=== PATIENT | male | born 1945 | race Caucasian/White ===

== ENCOUNTER → 2020-01-14 | Outpatient (CLI) | payer MEDICARE ==
--- NOTE | 2020-01-14 12:57 | Diagnostic Imaging Report ---
INDICATION: Foot pain. TECHNIQUE: 3 views of the right foot CORRELATION STUDY: None FINDINGS: There is no acute bony abnormality about the right foot. Toes are held in partial flexure limiting their assessment. There are hypertrophic changes of bipartite sesamoid bones of the great toe. Also mild degenerative changes joint space narrowing at the 1st MTP joints. Prominent plantar calcaneal spur is noted. Minimal bony spur like projection off the dorsal aspect of talus. Moderate enthesopathy of insertion of Achilles tendon. Soft tissues appearing unremarkable. IMPRESSION: 1. Negative for acute findings of the foot. Degenerative change present. Dictated by: Dictated on workstation # [id number]
== END ==
LOC: RAD FS 10:00
PROVIDERS: ATTEND Nurse Practitioner
DX: M19.071 Primary osteoarthritis, right ankle and foot (principal)
CPT/HCPCS: 73630

== ENCOUNTER → 2020-08-25 | Outpatient (CLI) | payer MEDICARE ==
--- NOTE | 2020-08-25 10:08 | Diagnostic Imaging Report ---
INDICATION: Right shoulder pain. Ran into door frame a month ago. EXAMINATION: Right shoulder, 3 views. FINDINGS: The glenohumeral joint is in good alignment. The joint space is well-maintained. The articulating surfaces are smooth. The AC joint shows good alignment with mild hypertrophic change along the undersurface. Surgical anchor and humeral tuberosity appear in good position without loosening. No fractures are demonstrated. No soft tissue calcification about the shoulder. 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 No acute abnormality is demonstrated. Dictated by: Dictated on workstation # [id number]
== END ==
LOC: RAD FS 08:27
PROVIDERS: ATTEND Nurse Practitioner
DX: M19.011 Primary osteoarthritis, right shoulder (principal); Z98.890 Other specified postprocedural states
CPT/HCPCS: 73030

== ENCOUNTER 2020-11-23 15:11 | Emergency (ER) | payer MEDICARE ==
[~2020-11-23] VITALS: Ht 177.8 cm; Wt 106.2 kg
[2020-11-23] MEDS ORDERED: VANCOMYCIN INJECTION 1,000 MG in NS (IVPB) 250 ML IV STA (15:29)
[2020-11-23] MEDS ORDERED: NS IV 1000 ML 1,000 ML IV STA (15:29)
[2020-11-23] MEDS ORDERED: ceFAZolin INJECTION 1,000 MG in WATER (STERILE) FOR INJECTION 10 ML IV STA (15:29)
--- NOTE | 2020-11-23 15:42 | ED General ---
General Chief Complaint: Facial Problems Stated Complaint: RASH ON RIGHT SIDE OF FACE Nursing Triage Note: Patient presents to the ED with c/o of facial swelling. He states he started having facial swelling on Monday so he was seen in urgent care Monday and prescribed Augmentin. He reports he has taken 3 doses but that the swelling has increased in severity. Nursing Sepsis Screen: No Definite Risk Source of Information: Patient, Spouse History of Present Illness Date Seen by Provider: November 23, 2020 Time Seen by Provider: 15:16 Initial Comments 75-year-old male presenting with complaints of right sided facial swelling and redness. He states this started on Monday and was seen on Monday at urgent care. He was prescribed Augmentin and has had 3 doses of that. He felt the swelling was worse today and after returning from a trip to [place] for his to have cataract surgery in the came to the emergency department. He has some mild tenderness to the right cheek where he has some razor cuts from shaving. He is unsure if that is what started his initial infection and issues. He was also having some dental pain and has an appointment to see the dentist tomorrow. He denies any fever or chills. He felt like he had tenderness in his lymph nodes on the right side and was having some pain going into his right ear. He denies any drainage from his cheek or in his mouth. His repeatedly interjects while patient is talking as well as while I am trying to perform my exam and history. Timing/Duration: 2-3 Days Severity: Moderate Associated Systoms: No Chest Pain, No Cough, No Diaphoresis, No Fever/Chills, N o Headaches, No Loss of Appetite, No Malaise, No Nausea/Vomiting, No Seizure, No Shortness of Air, No Syncope, No Weakness Allergies and Home Medications Allergies Coded Allergies: No Known Drug Allergies (Unverified , 11/23/20) Patient Home Medication List Home Medication List Reviewed: Yes Review of Systems Review of Systems Constitutional: No chills, No diaphoresis, No fever EENTM: see HPI, ear pain (mild right ear pain from the swelling to face and cheek); No blurred vision, No double vision, No epistaxis, No nose congestion Respiratory: no symptoms reported Cardiovascular: no symptoms reported Gastrointestinal: no symptoms reported Genitourinary: no symptoms reported Musculoskeletal: no symptoms reported Skin: see HPI, change in color (redness and swelling to right cheek with some superficial abrasions scabbed over on right cheek) Psychiatric/Neurological: No Symptoms Reported Hematologic/Lymphatic: No Symptoms Reported Immunological/Allergic: see HPI (swollen tender lymph nodes on right anterior cervical chain and submandibular), grass allergy, pollen allergy Past Dyxdlwc-Qptmtg-Jngapk Hx Past Med/Social Hx: Reviewed Nursing Past Med/Soc Hx Patient Social History Alcohol Use: Occasionally Uses Smoking Status: Never a Smoker 2nd Hand Smoke Exposure: No Recent Infectious Disease Expo: No Recent Hopitalizations: No Seasonal Allergies Seasonal Allergies: No Past Medical History Surgeries: No Respiratory: No Cardiac: No Neurological: No Genitourinary: No Gastrointestinal: No Musculoskeletal: No Endocrine: No HEENT: No Cancer: No Psychosocial: No Integumentary: No Blood Disorders: No Physical Exam Vital Signs Vital Signs - First Documented 11/23/20 15:15 Temp 37.0 Pulse 104 Resp 18 B/P (MAP) 144/84 (104) Pulse Ox 100 O2 Delivery Room Air Capillary Refill : Less Than 3 Seconds Height, Weight, BMI Height: '" Weight: lbs. oz. kg; 33.00 BMI Method: General Appearance: No Apparent Distress, WD/WN HEENT: PERRL/EOMI, TMs Normal, Pharynx Normal, Other (redness with swelling and mild increased warmth to right cheek and several superficial abrasions with eschars present on right cheek. 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 Skin: Warm/Dry, Erythema (with mild tenderness to right cheek) Focused Exam Lactate Level 11/23/20 15:38: Lactic Acid Level 1.50 Lactic Acid Level Laboratory Tests Test 11/23/20 15:38 Lactic Acid Level 1.50 MMOL/L (0.50-2.00) Progress/Results/Core Measures Suspected Sepsis Recent Fever Within 48 Hours: No Infection Criteria Present: None New/Unexplained Altered Menta: No Sepsis Screen: No Definite Risk SIRS Temperature: Pulse: 104 Respiratory Rate: 18 Laboratory Tests 11/23/20 15:38: White Blood Count 6.2 Blood Pressure 144 /84 Mean: 104 11/23/20 15:38: Lactic Acid Level 1.50 Laboratory Tests 11/23/20 15:38: Creatinine 1.21, Platelet Count 155, Total Bilirubin 0.4 Results/Orders Lab Results Laboratory Tests Test 11/23/20 15:38 Range/Units White Blood Count 6.2 4.3-11.0 10^3/uL Red Blood Count 4.95 4.35-5.85 10^6/uL Hemoglobin 14.8 13.3-17.7 G/DL Hematocrit 44 40-54 % Mean Corpuscular Volume 90 80-99 FL Mean Corpuscular Hemoglobin 30 25-34 PG Mean Corpuscular Hemoglobin Concent 33 32-36 G/DL Red Cell Distribution Width 12.9 10.0-14.5 % Platelet Count 155 130-400 10^3/uL Mean Platelet Volume 11.2 H 7.4-10.4 FL Immature Granulocyte % (Auto) 1 % Neutrophils (%) (Auto) 71 42-75 % Lymphocytes (%) (Auto) 14 12-44 % Monocytes (%) (Auto) 10 0-12 % Eosinophils (%) (Auto) 3 0-10 % Basophils (%) (Auto) 1 0-10 % Neutrophils # (Auto) 4.4 1.8-7.8 X 10^3 Lymphocytes # (Auto) 0.9 L 1.0-4.0 X 10^3 Monocytes # (Auto) 0.6 0.0-1.0 X 10^3 Eosinophils # (Auto) 0.2 0.0-0.3 10^3/uL Basophils # (Auto) 0.0 0.0-0.1 10^3/uL Immature Granulocyte # (Auto) 0.1 0.0-0.1 10^3/uL Sodium Level 138 135-145 MMOL/L Potassium Level 4.2 3.6-5.0 MMOL/L Chloride Level 104 98-107 MMOL/L Carbon Dioxide Level 24 21-32 MMOL/L Anion Gap 10 5-14 MMOL/L Blood Urea Nitrogen 18 7-18 MG/DL Creatinine 1.21 0.60-1.30 MG/DL Estimat Glomerular Filtration Rate 59 BUN/Creatinine Ratio 15 Glucose Level 85 70-105 MG/DL Lactic Acid Level 1.50 0.50-2.00 MMOL/L Calcium Level 9.2 8.5-10.1 MG/DL Corrected Calcium 8.9 8.5-10.1 MG/DL Total Bilirubin 0.4 0.1-1.0 MG/DL Aspartate Amino Transf (AST/SGOT) 39 H 5-34 U/L Alanine Aminotransferase (ALT/SGPT) 41 0-55 U/L Alkaline Phosphatase 74 40-136 U/L C-Reactive Protein < 0.30 <0.50 MG/DL Total Protein 7.5 6.4-8.2 GM/DL Albumin 4.4 3.2-4.5 GM/DL My Orders Orders - EKATERINA ANN MD Cbc With Automated Diff (11/23/20 15:29) Comprehensive Metabolic Panel (11/23/20 15:29) Blood Culture (11/23/20 15:29) Ed Iv/Invasive Line Start (11/23/20 15:29) Crp Fs (11/23/20 15:29) Lactic Acid Analyzer (11/23/20 15:29) Ct Neck (Soft Tissue) W (11/23/20 15:29) Ns Iv 1000 Ml (Sodium Chloride 0.9%) (11/23/20 15:29) Cefazolin Injection (Ancef Injection) (11/23/20 15:29) Vancomycin Injection (Vancomycin Injecti (11/23/20 15:29) Iohexol Injection (Omnipaque 350 Mg/Ml 1 (11/23/20 16:30) Received Contrast (Hold Metformin- Contr (11/23/20 16:30) Sodium Chloride Flush (Catheter Flush Sy (11/23/20 16:30) Ns (Ivpb) (Sodium Chloride 0.9% Ivpb Bag (11/23/20 16:30) Medications Given in ED Current Medications Medications Dose Ordered Sig/Venus Route Start Time Stop Time Status Last Admin Dose Admin Iohexol 75 ml ONCE ONCE IV 11/23/20 16:30 11/23/20 16:31 DC 11/23/20 16:38 75 ML Sodium Chloride 10 ml NEEDED PRN IV 11/23/20 16:30 11/23/20 17:40 DC 11/23/20 16:38 10 ML Sodium Chloride 100 ml ONCE ONCE IV 11/23/20 16:30 11/23/20 16:31 DC 11/23/20 16:38 100 ML Vital Signs/I&O 11/23/20 11/23/20 15:15 17:32 Temp 37.0 37.0 Pulse 104 95 Resp 18 18 B/P (MAP) 144/84 (104) 152/78 (104) Pulse Ox 100 100 O2 Delivery Room Air Capillary Refill : Less Than 3 Seconds Blood Pressure Mean: 104 Progress Note #1: Progress Note Counseled patient and spouse that it will take at least 2 to 3 days of antibiotics prior to seeing improvement. During this time the redness and swelling will worsen before it gets better. He is not running a fever but does have borderline tachycardia. With a source of infection and having the tachycardia, to check for sepsis will obtain blood work and lactic acid as well as blood cultures, although he has already been on antibiotics. Ordered fluids for hydration and a dose of vancomycin and Ancef to help boost the Augmentin he is taking. Ordered a CT scan of the soft tissue neck to further evaluate his area of infection and evaluate for possible abscess versus just cellulitis. Differential diagnosis includes cellulitis of the face, abscess of right cheek, sepsis from facial cellulitis, dental abscess Progress Note #2: Time: 16:23 Progress Note CBC without elevation of WBC count and normal differential. Chemistry also without acute significant abnormality. Normal lactic acid of 1.5 and CRP is <0.3. No evidence of sepsis from lab work. CT scan may now be performed with normal renal function. Progress Note #3: Time: 16:[address] scan of soft tissue neck/face is negative for an abscess. Signs of cellulitis and some lymph nodes on right side. Will have pt continue Augmentin. Try to keep head elevated, especially when sleeping and resting to help limit further swelling. If continued worsening and not responding to medicine then check back with clinic. Diagnostic Imaging Diagonstic Imaging: CT Plain Films/CT/US/NM/MRI: other (soft tissue neck) Comments NAME: RUDDYJESSICA AVELAR [facility] REC#: [id number] PT STATUS: REG ER : 1945 PHYSICIAN: EKATERINA ANN MD ADMIT DATE: 11/23/20/ER FS Draft Date of Exam:11/23/20 CT NECK (SOFT TISSUE) W PROCEDURE: CT neck soft tissue with contrast. TECHNIQUE: Multiple contiguous axial images were obtained through the neck after the administration of contrast. Auto Exposure Controls were utilized during the CT exam to meet ALARA standards for radiation dose reduction. INDICATION: Facial swelling and cervical adenopathy. FINDINGS: There is asymmetric thickening of subcutaneous tissues in the right face with edema and/or inflammation on the right. No organized fluid collection is detected. Mild mural thickening is seen within the maxillary sinuses, greater on the right. No paranasal sinus air-fluid level is identified. No pathologically enlarged adenopathy is detected. There are subcentimeter nodules along the inferior aspect of the parotid glands bilaterally. These are generally symmetric. Submandibular salivary glands and thyroid gland are unremarkable in appearance. There is mild diffuse cervical spondylosis. IMPRESSION: 1. Findings are compatible with possible cellulitis in the right face, however no drainable fluid collection or bone destruction is identified. 2. Subcentimeter nodules are seen in the inferior aspect of both parotid glands. These may represent intraparenchymal lymph nodes. Follow-up study could be performed in three to four months, if indicated. Otherwise, there is no evidence of an acute abnormality. Dictated on workstation # [id number] Dict: 11/23/20 1649 Trans: 11/23/20 1655 [id number] Interpreted by: WOO DRAPER MD Electronically signed by: Departure Impression Primary Impression: Cellulitis of face Additional Impression: Facial swelling Disposition: 01 HOME, SELF-CARE Condition: Stable Departure-Patient Inst. Decision time for Depature: 17:18 Referrals: [facility] (PCP) Primary Care Physician MELISSA BLUE APRN (Family) Primary Care Physician Patient Instructions: Cellulitis (Skin Infection), Adult ED Add. Discharge Instructions: Continue on the antibiotic to treat for infection. Try to keep your head elevated at least 30-45 degrees to help limit swelling and pain, especially while you are sleeping. If not seeing improvement by Monday or , or if you have fever over 101 F, drainage from the areas on the face or your eye swells shut then return or check with clinic All discharge instructions reviewed with patient and/or family. Voiced understanding. Images Head/Face 1 - Cellulitis (redness and swelling to right cheek back towards preauricular area. mild tenderness to palpation over the center of cheek where he has superficial abrasions), Swelling (No fluctuance or drainage to area of swelling), Tenderness EKATERINA ANN MD November 23, 2020 15:42
[2020-11-23 16:17] LABS: ALBUMIN 4.4 GM/DL (3.2-4.5); BILIRUBIN,TOTAL 0.4 MG/DL (0.1-1.0); CALCIUM 9.2 MG/DL (8.5-10.1); CREATININE SERUM 1.21 MG/DL (0.60-1.30); POTASSIUM 4.2 MMOL/L (3.6-5.0); TOTAL PROTEIN 7.5 GM/DL (6.4-8.2)
[2020-11-23 16:20] LABS: BASOPHILS % (AUTO) 1 % (0-10); EOSINOPHILS # (AUTO) 0.2 10^3/uL (0.0-0.3); EOSINOPHILS % (AUTO) 3 % (0-10); HEMATOCRIT 44 % (40-54); HEMOGLOBIN 14.8 G/DL (13.3-17.7); LYMPHOCYTES # (AUTO) 0.9 X 10^3 (1.0-4.0); LYMPHOCYTES % (AUTO) 14 % (12-44); MEAN CORPUSCULAR HEMOGLOBIN 30 PG (25-34); MEAN CORPUSCULAR HGB CONC 33 G/DL (32-36); MEAN CORPUSCULAR VOLUME 90 FL (80-99); MEAN PLATELET VOLUME 11.2 FL (7.4-10.4); MONOCYTES # (AUTO) 0.6 X 10^3 (0.0-1.0); MONOCYTES % (AUTO) 10 % (0-12); NEUTROPHILS # (AUTO) 4.4 X 10^3 (1.8-7.8); NEUTROPHILS % (AUTO) 71 % (42-75); PLATELET COUNT 155 10^3/uL (130-400); WHITE BLOOD COUNT 6.2 10^3/uL (4.3-11.0)
[2020-11-23] MEDS ORDERED: HOLD METFORMIN - RECEIVED CONTRAST 20 ML VIAL IV SCH (16:30)
[2020-11-23] MEDS ORDERED: IOHEXOL 350 MG/ML 100 ML (OMNIPAQUE 350) VIAL IV ONE (16:30)
[2020-11-23] MEDS ORDERED: NS 100 ML (IVPB) BAG IV ONE (16:30)
[2020-11-23] MEDS ORDERED: CATHETER FLUSH 10 ML SYR IV PRN (16:30)
--- NOTE | 2020-11-23 16:56 | Diagnostic Imaging Report ---
PROCEDURE: CT neck soft tissue with contrast. TECHNIQUE: Multiple contiguous axial images were obtained through the neck after the administration of contrast. Auto Exposure Controls were utilized during the CT exam to meet ALARA standards for radiation dose reduction. INDICATION: Facial swelling and cervical adenopathy. FINDINGS: There is asymmetric thickening of subcutaneous tissues in the right face with edema and/or inflammation on the right. No organized fluid collection is detected. Mild mural thickening is seen within the maxillary sinuses, greater on the right. No paranasal sinus air-fluid level is identified. No pathologically enlarged adenopathy is detected. There are subcentimeter nodules along the inferior aspect of the parotid glands bilaterally. These are generally symmetric. Submandibular salivary glands and thyroid gland are unremarkable in appearance. There is mild diffuse cervical spondylosis. Atherosclerotic plaque is present at the bifurcation of the right common carotid artery without significant stenosis detected. IMPRESSION: 1. Findings are compatible with possible cellulitis in the right face, however no drainable fluid collection or bone destruction is identified. 2. Subcentimeter nodules are seen in the inferior aspect of both parotid glands. These may represent intraparenchymal lymph nodes. Follow-up study could be performed in three to four months, if indicated. Otherwise, there is no evidence of an acute abnormality. Dictated by: Dictated on workstation # [id number]
[2020-11-23 17:32] VITALS: BP 152/78
== END 2020-11-23 17:30 | disposition home or self-care (01) ==
LOC: EDUNIT# 15:11 → ER FS 15:13
DX: S00.81XA Abrasion of other part of head, initial encounter (principal); L03.211 Cellulitis of face; R00.0 Tachycardia, unspecified; W26.8XXA Contact with other sharp object(s), not elsewhere classified, initial encounter
CPT/HCPCS: 36415; 70491; 80053; 83605; 85025; 86141; 87040

== ENCOUNTER 2020-11-24 19:25 | Inpatient (IN) | payer MEDICARE ==
[~2020-11-24] VITALS: Ht 177.8 cm; Wt 105.5 kg
--- NOTE | 2020-11-24 19:43 | ED General ---
General Chief Complaint: Fever-Adult/Adol Stated Complaint: FEVER,FACE LACS Nursing Triage Note: Patient presents to the ER with fever. Patient was seen yesterday in the ER for a wound on his face. Patients right cheek is red and swollen. Swelling goes down the right side of his neck. Patient was given some IV antibiotics yesterday and sent home with a prescription antibiotic. Patient was advised to come back to the ER if he spiked a fever. Patient states that his fever was 37.2 and possibly 37.8. Patient wanted to get checked out. Nursing Sepsis Screen: No Definite Risk History of Present Illness Date Seen by Provider: November 24, 2020 Time Seen by Provider: 19:43 Initial Comments Patient presenting to the emergency department for evaluation of what may or may not be a worsening facial cellulitis. Reportedly he may have been bitten by some ants 4 to 5 days ago and also may have cut himself shaving and then noticed increased redness on Monday and went to an urgent care on Monday and was started on Augmentin. Patient felt that he was getting worse and he was seen in this emergency department yesterday and was continued on the Augmentin but was given Ancef and vancomycin. He reportedly felt nauseated earlier in the day but is not having any nausea currently and he reportedly had a fever of 99.9 and 100.1 and this made him and his very nervous so he presented back to the emergency department. The patient himself feels that the swelling and redness i s getting better however the feels that it is getting worse. She says that she feels that it should be much better by now given he has had 2-1/2 days of antibiotics. Patient is in no obvious distress with normal vital signs other than slight tachycardia noted. Allergies and Home Medications Allergies Coded Allergies: No Known Drug Allergies (Unverified , 11/23/20) Patient Home Medication List Home Medication List Reviewed: Yes Review of Systems Review of Systems Constitutional: chills, fever EENTM: no symptoms reported Respiratory: no symptoms reported Cardiovascular: no symptoms reported Gastrointestinal: no symptoms reported, nausea Musculoskeletal: no symptoms reported Skin: other (redness, swelling) Psychiatric/Neurological: No Symptoms Reported All Other Systems Reviewed Negative Unless Noted: Yes Past Sqxsjxh-Qbzkpu-Eggsjz Hx Patient Social History Alcohol Use: Denies Use Smoking Status: Never a Smoker 2nd Hand Smoke Exposure: No Recent Infectious Disease Expo: No Recent Hopitalizations: No Seasonal Allergies Seasonal Allergies: No Past Medical History Surgeries: No Respiratory: No Cardiac: No Neurological: No Genitourinary: No Gastrointestinal: No Musculoskeletal: No Endocrine: No HEENT: No Cancer: No Psychosocial: No Integumentary: No Blood Disorders: No Physical Exam Vital Signs Vital Signs - First Documented 11/24/20 19:29 Temp 37.0 Pulse 104 Resp 18 B/P (MAP) 174/87 (116) Pulse Ox 96 O2 Delivery Room Air Capillary Refill : Less Than 3 Seconds Height, Weight, BMI Height: '" Weight: lbs. oz. kg; 34.00 BMI Method: General Appearance: No Apparent Distress, WD/WN HEENT: PERRL/EOMI Neck: Supple, Lymphadenopathy (R) Respiratory: Lungs Clear, No Respiratory Distress Cardiovascular: Regular Rate, Rhythm Extremity: Normal Capillary Refill Neurologic/Psychiatric: Alert, Oriented x3 Skin: Warm/Dry, Other (Patient has what appears to be 3 small abrasions with surrounding bruising on the right cheek with hardened tissue but no definite induration or abscess. Erythema covers almost his entire right cheek and he has warmth and tenderness to palpation.) Progress/Results/Core Measures Suspected Sepsis Recent Fever Within 48 Hours: No Infection Criteria Present: None New/Unexplained Altered Menta: No Sepsis Screen: No Definite Risk SIRS Temperature: Pulse: 104 Respiratory Rate: 18 Blood Pressure 174 /87 Mean: 116 Results/Orders Vital Signs/I&O 11/24/20 19:29 Temp 37.0 Pulse 104 Resp 18 B/P (MAP) 174/87 (116) Pulse Ox 96 O2 Delivery Room Air Capillary Refill : Less Than 3 Seconds Blood Pressure Mean: 116 Progress Note : Progress Note I told patient if they feel that he is getting worse we would consider this a failure of outpatient treatment and he would require admission for IV antibiotics. He is very reluctant to be admitted the hospital but the is very nervous and says that she feels that he needs to be treated more aggressively. I told him that getting a one-time dose of antibiotics here would not be helpful and if he is truly getting worse he would need admission for IV antibiotics. Patient consented to this treatment. Patient did not want to take an ambulance to the hospital and wanted to drive himself. Patient accepted the risks of and disability by driving himself. I ordered bridge orders with CBC and CMP to be drawn there and in the morning and for IV Zosyn and vancomycin to be started on arrival. Patient transferred in stable condition. Departure Impression Primary Impression: Cellulitis of face Additional Impression: Failure of outpatient treatment Disposition: ADMITTED INPATIENT Condition: Stable Transfer Transfer Reason: Exceeds level of care Time Spoke to Accepting Phy: 20:00 Transfer Facility: [facility] Accepted by Dr. Nicole Method of Transfer: Private Vehicle Departure-Patient Inst. Referrals: [facility] (PCP) Primary Care Physician MELISSA BLUE APRN (Family) Primary Care Physician VAHE MALHOTRA DO November 24, 2020 19:43
[2020-11-24 22:14] VITALS: BP 171/80
[2020-11-24 22:45] LABS: HEMOGLOBIN 13.6 g/dL (13.3-17.7); MEAN CORPUSCULAR VOLUME 91 fL (80-99); MEAN PLATELET VOLUME 11.3 fL (9.0-12.2); MONOCYTES # (AUTO) 0.7 10^3/uL (0.0-1.0)
[2020-11-24 22:47] LABS: BASOPHILS # (AUTO) 0.1 10^3/uL (0.0-0.1); BASOPHILS % (AUTO) 1 % (0-10); EOSINOPHILS # (AUTO) 0.2 10^3/uL (0.0-0.3); EOSINOPHILS % (AUTO) 4 % (0-10); HEMATOCRIT 42 % (40-54); LYMPHOCYTES % (AUTO) 19 % (12-44); MEAN CORPUSCULAR HEMOGLOBIN 30 pg (25-34); MEAN CORPUSCULAR HGB CONC 33 g/dL (32-36); MONOCYTES % (AUTO) 12 % (0-12); NEUTROPHILS # (AUTO) 3.4 10^3/uL (1.8-7.8); NEUTROPHILS % (AUTO) 63 % (42-75); PLATELET COUNT 126 10^3/uL (130-400); WHITE BLOOD COUNT 5.3 10^3/uL (4.3-11.0)
[2020-11-24] MEDS ORDERED: PIPERACILLIN/TAZO 4.5 GM/NS 100 ML IV ONE ×2 (23:00)
[2020-11-24] MEDS ORDERED: VANCOMYCIN 1000 MG/VIAL ONE (23:03)
[2020-11-24] MEDS ORDERED: PIPERACILLIN/TAZO 4.5 GM VIAL (ZOSYN) IV ONE (23:03)
[2020-11-24] MEDS ORDERED: NS (IVPB) 100 ML ONE (23:03)
[2020-11-24] MEDS ORDERED: NS (IVPB) 250 ML ONE (23:03)
[2020-11-24 23:05] LABS: ALBUMIN 4.1 GM/DL (3.2-4.5); POTASSIUM 4.1 MMOL/L (3.6-5.0)
[2020-11-24 23:07] LABS: CALCIUM 9.2 MG/DL (8.5-10.1)
[2020-11-24 23:08] LABS: TOTAL PROTEIN 6.8 GM/DL (6.4-8.2)
[2020-11-24 23:10] LABS: BILIRUBIN,TOTAL 0.6 MG/DL (0.1-1.0)
[2020-11-24 23:11] LABS: CREATININE SERUM 1.3 MG/DL (0.60-1.30)
[2020-11-24] MEDS: VANCOMYCIN 1 GM/NS 250 ML IVPB IV SCH ×2 (23:34)
[2020-11-24 23:36] VITALS: BP 162/77
[2020-11-25] MEDS ORDERED: VANCOMYCIN 1000 MG/VIAL ONE (00:41)
[2020-11-25] MEDS: VANCOMYCIN 1 GM/NS 250 ML IVPB IV SCH ×2 (00:53)
[2020-11-25 03:27] VITALS: BP 132/65
[2020-11-25] MEDS ORDERED: PIPERACILLIN/TAZO 4.5 GM VIAL (ZOSYN) IV ONE (04:47)
[2020-11-25] MEDS: PIPERACILLIN/TAZO 4.5 GM/NS 100 ML IV SCH ×4 (05:07→13:04)
[2020-11-25 05:43] LABS: BASOPHILS % (AUTO) 1 % (0-10); HEMOGLOBIN 12.9 g/dL (13.3-17.7); WHITE BLOOD COUNT 4.7 10^3/uL (4.3-11.0)
[2020-11-25 05:45] LABS: EOSINOPHILS # (AUTO) 0.2 10^3/uL (0.0-0.3); EOSINOPHILS % (AUTO) 5 % (0-10); HEMATOCRIT 39 % (40-54); LYMPHOCYTES # (AUTO) 0.8 10^3/uL (1.0-4.0); LYMPHOCYTES % (AUTO) 18 % (12-44); MEAN CORPUSCULAR HEMOGLOBIN 30 pg (25-34); MEAN CORPUSCULAR HGB CONC 33 g/dL (32-36); MEAN CORPUSCULAR VOLUME 91 fL (80-99); MONOCYTES # (AUTO) 0.6 10^3/uL (0.0-1.0); MONOCYTES % (AUTO) 12 % (0-12); NEUTROPHILS # (AUTO) 3.1 10^3/uL (1.8-7.8); NEUTROPHILS % (AUTO) 64 % (42-75); PLATELET COUNT 118 10^3/uL (130-400)
[2020-11-25 05:55] LABS: ALBUMIN 3.7 GM/DL (3.2-4.5); POTASSIUM 4.3 MMOL/L (3.6-5.0)
[2020-11-25 05:57] LABS: CALCIUM 8.7 MG/DL (8.5-10.1)
[2020-11-25 05:58] LABS: TOTAL PROTEIN 6.2 GM/DL (6.4-8.2)
[2020-11-25 06:00] LABS: BILIRUBIN,TOTAL 0.6 MG/DL (0.1-1.0)
[2020-11-25 06:02] LABS: CREATININE SERUM 1.26 MG/DL (0.60-1.30)
[2020-11-25 08:01] VITALS: BP 155/78
[2020-11-25] MEDS ORDERED: LISI20TA26 PO (10:10)
[2020-11-25] MEDS ORDERED: ASPI-1238 PO (10:10)
[2020-11-25] MEDS ORDERED: LISI1TAB46 PO (10:10)
[2020-11-25] MEDS ORDERED: AMOX1TAB12 PO (10:10)
[2020-11-25] MEDS ORDERED: MULT-1136 PO (10:10)
[2020-11-25] MEDS ORDERED: FINA5TAB6 PO (10:10)
[2020-11-25] MEDS ORDERED: BIMA2.5D4 OU (10:10)
[2020-11-25 11:39] VITALS: BP 176/81
--- NOTE | 2020-11-25 11:47 | History & Physical ---
HPI History of Present Illness: Redness on face, started with small spot and on Monday started getting worse, spreading further and noticed swollen lymph nodes, went to clinic Monday and got antibiotics and Monday went to ER due to persistence, had CT which showed no abscess. Monday had temperature of 99 to 100 and so they came back to the ER, and they wanted to come in to get IV antibiotics. This morning he still has some earache in his right ear, swelling in heck has gone down but lymph nodes are still palpable and redness does seem to have gone down quite a bit compared to him. He noticed some pus looking pockets which opened and are now scabbing over. He is also concerned about having some tightness in his left calf and behind knee. He had a blood clot in his right leg in the past and it started similarly, happened after a bee sting. Date seen by provider: November 25, 2020 Time Seen by Provider: 11:45 Attending Physician Nirmala Nicole MD [facility] [place] Consult Date of Admission November 24, 2020 at 21:54 Home Medications Home Medications Reviewed patient Home Medication Reconciliation performed by pharmacy medication reconciliations gallery or museum technician and/or nursing. Patients Allergies have been reviewed. Allergies Coded Allergies: No Known Drug Allergies (Unverified , 11/23/20) EFT-Swchiv-Gdacvb Hx Patient Social History Smoking Status: Former Smoker 2nd Hand Smoke Exposure: No Recent Hopitalizations: No Alcohol Use?: No Tobacco type used: Cigarettes Have you traveled recently?: No Past Medical History PMHx: DVT HTN SurgHx: Appendectomy Prostate Cholecystectomy Ureteral stenting Bilateral knee replaced Bilateral shoulder arthroscopy Foot surgery for plantar fasciitis Family Medical History Significant Family History: No Pertinent Family Hx Review of Systems ([facility]) Constitutional: fever EENTM: throat pain; No nose congestion Respiratory: No short of breath Cardiovascular: No chest pain Gastrointestinal: No abdominal pain, No constipation, No diarrhea; nausea; No vomiting Genitourinary: No dysuria Musculoskeletal: joint pain (chronic) Skin: see HPI Physical Exam-([facility]) Physical Exam Vital Signs VS - Last 72 Hours, by Label 11/24/20 11/24/20 11/24/20 11/24/20 19:29 20:28 22:14 22:40 Temp 37.0 37.0 37.3 Pulse 104 104 95 Resp 18 18 18 B/P (MAP) 174/87 (116) 174/87 (116) 171/80 (110) Pulse Ox 96 96 95 O2 Delivery Room Air Room Air Room Air 11/24/20 11/25/20 11/25/20 11/25/20 23:36 03:27 08:00 08:01 Temp 37.0 36.8 36.2 Pulse 90 71 70 Resp 18 18 16 B/P (MAP) 162/77 (105) 132/65 (87) 155/78 (103) Pulse Ox 96 95 96 O2 Delivery Room Air Room Air Room Air Room Air 11/25/20 11/25/20 11/25/20 11:39 15:37 18:00 Temp 36.9 36.6 36.6 Pulse 90 88 88 Resp 16 18 18 B/P (MAP) 176/81 (112) 158/79 (105) 158/79 Pulse Ox 94 95 95 O2 Delivery Room Air Room Air Room Air Capillary Refill : Less Than 3 Seconds General Appearance: WD/WN HEENT: pharynx normal; No pharyngeal erythema, No tonsillar exudate Respiratory: lungs clear, normal breath sounds Cardiovascular: regular rate, rhythm, no murmur Gastrointestinal: normal bowel sounds, non tender, soft Extremities: no pedal edema Neurologic/Psychiatric: alert, normal mood/affect Skin: other (right cheek with mild edema, marked erythema with few patchy dark areas overlying) Assessment/Plan Assessment/Plan Admission Status: Observation (1) Cellulitis of face Status: Acute Assessment & Plan: Started on vancomycin and zosyn, will transition to oral with MRSA coverage. (2) History of DVT of lower extremity Status: Chronic Assessment & Plan: Given history of DVT and similar pain in left leg, will check doppler. NIRMALA NICOLE MD November 25, 2020 11:47
--- NOTE | 2020-11-25 14:13 | Diagnostic Imaging Report ---
PROCEDURE: US left lower extremity venous. TECHNIQUE: Multiple real-time grayscale images were obtained over the left lower extremity in various projections. Additional duplex Doppler and color Doppler images were also obtained. INDICATION: DVT. FINDINGS: There is no evidence of left lower extremity DVT. Left lower extremity deep venous system shows normal compressibility with normal response to augmentation and Valsalva. No fluid collection or mass is detected. IMPRESSION: No evidence of left lower extremity DVT. Dictated by: Dictated on workstation # [id number]
[2020-11-25 15:37] VITALS: BP 158/79
[2020-11-25] MEDS ORDERED: CLIN300C12 PO (16:16)
--- NOTE | 2020-11-25 16:19 | Discharge Summary ---
Discharge Summary Hospital Course Hospital Course Date of Admission: November 24, 2020 at 21:54 Admission Diagnosis : Family Physician/Provider: Amy Molina Aprn Date of Discharge: 11/25/20 Discharge Diagnosis: Facial cellulitis Hospital Course: Pt admitted with facial cellulitis not improving on Augmentin at home and given zosyn and vancomycin overnight with significant improvement. He had a CT on an ER visit prior to this admission that showed no abscess and blood cultures from 11/23 that are negative to date. He had pain in his left calf and history of DVT so ultrasound was done which showed no DVT. Antibiotic was changed to clindamycin on d/c for possible MRSA. Labs and Pending Lab Test: Laboratory Tests 11/24/20 22:25: White Blood Count 5.3, Red Blood Count 4.56, Hemoglobin 13.6, Hematocrit 42, Mean Corpuscular Volume 91, Mean Corpuscular Hemoglobin 30, Mean Corpuscular Hemoglobin Concent 33, Red Cell Distribution Width 12.6, Platelet Count 126L, Mean Platelet Volume 11.3, Immature Granulocyte % (Auto) 0, Neutrophils (%) (Auto) 63, Lymphocytes (%) (Auto) 19, Monocytes (%) (Auto) 12, Eosinophils (%) (Auto) 4, Basophils (%) (Auto) 1, Neutrophils # (Auto) 3.4, Lymphocytes # (Auto) 1.0, Monocytes # (Auto) 0.7, Eosinophils # (Auto) 0.2, Basophils # (Auto) 0.1, Immature Granulocyte # (Auto) 0.0, Percent Immature Platelet Fraction 5.1, Sodiu m Level 140, Potassium Level 4.1, Chloride Level 105, Carbon Dioxide Level 24, Anion Gap 11, Blood Urea Nitrogen 18, Creatinine 1.30, Estimat Glomerular Filtration Rate 54, BUN/Creatinine Ratio 14, Glucose Level 119H, Calcium Level 9.2, Corrected Calcium 9.1, Total Bilirubin 0.6, Aspartate Amino Transf (AST/SGOT) 39H, Alanine Aminotransferase (ALT/SGPT) 38, Alkaline Phosphatase 58, Total Protein 6.8, Albumin 4.1 11/25/20 05:07: Sodium Level 139, Potassium Level 4.3, Chloride Level 105, Carbon Dioxide Level 24, Anion Gap 10, Blood Urea Nitrogen 18, Creatinine 1.26, Estimat Glomerular Filtration Rate 56, BUN/Creatinine Ratio 14, Glucose Level 106H, Calcium Level 8.7, Corrected Calcium 8.9, Total Bilirubin 0.6, Aspartate Amino Transf (AST/SGOT) 40H, Alanine Aminotransferase (ALT/SGPT) 38, Alkaline Phosphatase 52, Total Protein 6.2L, Albumin 3.7 11/25/20 05:40: White Blood Count 4.7, Red Blood Count 4.32, Hemoglobin 12.9L, Hematocrit 39L, Mean Corpuscular Volume 91, Mean Corpuscular Hemoglobin 30, Mean Corpuscular Hemoglobin Concent 33, Red Cell Distribution Width 12.7, Platelet Count 118L, Mean Platelet Volume 11.0, Immature Granulocyte % (Auto) 0, Neutrophils (%) (Auto) 64, Lymphocytes (%) (Auto) 18, Monocytes (%) (Auto) 12, Eosinophils (%) (Auto) 5, Basophils (%) (Auto) 1, Neutrophils # (Auto) 3.1, Lymphocytes # (Auto) 0.8L, Monocytes # (Auto) 0.6, Eosinophils # (Auto) 0.2, Basophils # (Auto) 0.0, Immature Granulocyte # (Auto) 0.0, Percent Immature Platelet Fraction 5.5 Home Meds Active Reported Multivitamin 1 Each Tablet 1 Each PO DAILY Aspirin EC (Aspirin) 81 Mg Tablet.dr 81 Mg PO DAILY Finasteride 5 Mg Tablet 5 Mg PO DAILY Lisinopril 20 Mg Tablet 20 Mg PO DAILY TAKES LISINOPRIL/HCTZ 20/12.5NG TAB ALONG WITH A LISINOPRIL 20MG TAB Lisinopril-Hctz 20-12.5 mg Tab (Lisinopril/Hydrochlorothiazide) 1 Each Tablet 1 Ea PO DAILY TAKES LISINOPRIL/HCTZ 20/12.5NG TAB ALONG WITH A LISINOPRIL 20MG TAB Lumigan (Bimatoprost) 2.5 Ml Drops 1 Drop OU HS Amox Tr-K Clv 875-125 mg Tab (Amoxicillin/Potassium Clav) 1 Each Tablet 1 Ea PO BID FILLED 11-22-2020 #20/ DAY SUPPLY Assessment/Pt DC Instructions Follow up with Amy Molina on November 25 at 10 am. Discharge Diet: No Restrictions Discharge Physical Examination Allergies: Coded Allergies: No Known Drug Allergies (Unverified , 11/23/20) NIRMALA KONG MD November 25, 2020 16:19
[2020-11-25] MEDS ORDERED: VANCOMYCIN 1250 MG/NS 250 ML IVPB IV SCH ×2 (17:00)
[2020-11-25 18:00] VITALS: BP 158/79
[2020-11-25] MEDS ORDERED: LATANOPROST 0.005% (XALATAN) OPHTH SOLN 2.5 ML OU SCH (21:00)
[2020-11-26] MEDS ORDERED: FINASTERIDE (PROSCAR) 5 MG TAB PO SCH (09:00)
[2020-11-26] MEDS ORDERED: ASPIRIN E.C. 81 MG (ECOTRIN) TAB PO SCH (09:00)
[2020-11-26] MEDS ORDERED: lisINopril 20 MG (PRINIVIL) TABLET PO SCH (09:00)
[2020-11-27] MEDS ORDERED: TROUGH ORDER-PHARMACY XX NR (04:00)
== END 2020-11-25 18:00 | disposition home or self-care (01) | DRG 603 ==
LOC: EDUNIT# 19:25 → ER FS 19:26 → 4TH 21:54
PROVIDERS: ADMIT Family Medicine; ATTEND Family Medicine
DX: L03.211 Cellulitis of face (principal); Z87.891 Personal history of nicotine dependence; Z79.2 Long term (current) use of antibiotics; Z79.82 Long term (current) use of aspirin
CPT/HCPCS: 36415; 80053; 85025; 99284

== ENCOUNTER → 2022-03-25 | Outpatient (CLI) | payer MEDICARE ==
[~2022-03-25] VITALS: Ht 177.8 cm; Wt 101.0 kg
[~2022-03-25] MED LIST: AMOX1TAB12 PO; ASPI-1238 PO; BIMA2.5D4 OU; CLIN-144 PO; FINA5TAB6 PO; LISI1TAB46 PO; LISI20TA26 PO; MULT-1136 PO
== END | disposition home or self-care (01) ==
LOC: PREOP 05:30
PROVIDERS: ATTEND Otolaryngology Otolaryngology/Facial Plastic Surgery
DX: Z01.818 Encounter for other preprocedural examination (principal)

== ENCOUNTER 2022-04-01 06:13 | Day surgery (SDC) | payer MEDICARE ==
[~2022-04-01] VITALS: Ht 177.8 cm; Wt 102.0 kg
[2022-04-01] VITALS (11 sets, daily range): BP systolic 117–178; BP diastolic 59–78
[2022-04-01] MEDS ORDERED: LACTATED RINGERS 1,000 ML IV PRN (06:45)
[2022-04-01] MEDS ORDERED: fentaNYL INJ 100 MCG/2 ML AMP ONE (07:25)
[2022-04-01] MEDS ORDERED: MUPIROCIN 2% OINT 22 GM (BACTROBAN) TUBE ONE (07:25)
[2022-04-01] MEDS ORDERED: BSS 15 ML ONE (07:25)
[2022-04-01] MEDS ORDERED: LIDOCAINE/EPI 2% 1:200,00 (XYLOCAINE) 10 ML VIAL ONE ×3 (07:26→09:45)
[2022-04-01 07:41] LABS: BASOPHILS # (AUTO) 0.1 10^3/uL (0.0-0.1); BASOPHILS % (AUTO) 1 % (0-10); EOSINOPHILS # (AUTO) 0.5 10^3/uL (0.0-0.3); EOSINOPHILS % (AUTO) 10 % (0-10); HEMATOCRIT 40 % (40-54); HEMOGLOBIN 13.8 g/dL (13.3-17.7); LYMPHOCYTES # (AUTO) 1.7 10^3/uL (1.0-4.0); LYMPHOCYTES % (AUTO) 33 % (12-44); MEAN CORPUSCULAR HEMOGLOBIN 30 pg (25-34); MEAN CORPUSCULAR HGB CONC 34 g/dL (32-36); MEAN CORPUSCULAR VOLUME 88 fL (80-99); MONOCYTES # (AUTO) 0.5 10^3/uL (0.0-1.0); MONOCYTES % (AUTO) 10 % (0-12); NEUTROPHILS # (AUTO) 2.4 10^3/uL (1.8-7.8); NEUTROPHILS % (AUTO) 45 % (42-75); PLATELET COUNT 155 10^3/uL (130-400); WHITE BLOOD COUNT 5.3 10^3/uL (4.3-11.0)
--- NOTE | 2022-04-01 07:50 | Progress Note-Pre Operative ---
Pre-Operative Progress Note Date of Available H&P: Apr 01, 2022 Date H&P Reviewed: Apr 01, 2022 Time H&P Reviewed: 06:30 History & Physical: H&P Reviewed, Patient Examed, No changes noted Changes from last HP none Pre-Operative Diagnosis: Skin Cancer-Nasal Dorsum, Left [place] BEREKET BOLTON MD Apr 01, 2022 07:49
[2022-04-01 07:51] LABS: POTASSIUM 4.3 MMOL/L (3.6-5.0)
[2022-04-01 07:52] LABS: CALCIUM 9.1 MG/DL (8.5-10.1)
[2022-04-01 07:56] LABS: CREATININE SERUM 1.36 MG/DL (0.60-1.30)
[2022-04-01] MEDS ORDERED: LIDOCAINE/EPI 2% 1:200,00 (XYLOCAINE) 10 ML VIAL IJ ONE ×2 (08:34→09:52)
[2022-04-01] MEDS ORDERED: BSS 15 ML TOP ONE (08:37)
[2022-04-01] MEDS ORDERED: ceFAZolin INJECTION 1,000 MG ONE (08:39)
--- NOTE | 2022-04-01 08:39 | Progress Note-Post Operative ---
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 Specimen(s) collected/removed nasal dorsum lesion and left jehovah's witness lesion to path for frozen BEREKET BOLTON MD Apr 01, 2022 08:39
[2022-04-01] MEDS ORDERED: MUPIROCIN 2% OINT 22 GM (BACTROBAN) TUBE TOP ONE (08:40)
[2022-04-01] MEDS ORDERED: HYDROcodone/APAP 5 MG/325 MG (LORTAB) TAB PO PRN (08:45)
[2022-04-01] MEDS ORDERED: ACETAMINOPHEN 325 MG TABLET PO PRN (08:45)
[2022-04-01] MEDS ORDERED: ceFAZolin INJECTION 1,000 MG IV ONE (08:46)
[2022-04-01] MEDS ORDERED: proPOfol 200 MG/20 ML (DIPRIVAN) VIAL IV ONE (09:15)
[2022-04-01] MEDS ORDERED: LIDOCAINE PF 2% 5 ML (XYLOCAINE) VIAL ONE (09:15)
[2022-04-01] MEDS ORDERED: ONDANSETRON 4 MG/2 ML (SDV) Z0FRAN ONE (09:15)
[2022-04-01] MEDS ORDERED: SEVOFLURANE (ULTANE) 15 ML INHAL SOLN ONE (10:14)
--- NOTE | 2022-04-01 10:52 | Anesthesia-General Post-Op ---
General Patient Condition Mental Status/LOC: Same as Preop Cardiovascular: Satisfactory Nausea/Vomiting: Absent Respiratory: Satisfactory Pain: Controlled Complications: Absent Post Op Complications Complications None Follow Up Care/Instructions Patient Instructions None needed. Anesthesia/Patient Condition Patient Condition Patient is doing well, no complaints, stable vital signs, no apparent adverse anesthesia problems. No complications reported per nursing. EDWIN GÓMEZ CRNA Apr 01, 2022 10:52
[2022-04-01] MEDS ORDERED: fentaNYL INJ 100 MCG/2 ML AMP IVP ONE (11:00)
[2022-04-01] MEDS ORDERED: ONDANSETRON 4 MG/2 ML (SDV) Z0FRAN IVP PRN (11:00)
[2022-04-01] MEDS ORDERED: morphine INJ 10 MG/ML 1ML (SYR OR VIAL) IVP ONE (11:00)
[2022-04-01] MEDS ORDERED: CEPH500T PO (11:50)
[2022-04-01] MEDS ORDERED: ACHD5005 PO (11:50)
== END 2022-04-01 13:50 | disposition home or self-care (01) ==
LOC: SDC 06:13
PROVIDERS: ATTEND Otolaryngology Otolaryngology/Facial Plastic Surgery
DX: C44.319 Basal cell carcinoma of skin of other parts of face (principal); L57.0 Actinic keratosis; E66.9 Obesity, unspecified; Z68.32 Body mass index [BMI] 32.0-32.9, adult
CPT/HCPCS: 36415; 80048; 85025; 87081; 88305; 93005